=== PATIENT | female | born 1970 | race Caucasian/White ===

== ENCOUNTER 2019-03-07 20:16 | Emergency (ER) | payer BC ==
[2019-03-07 20:31] VITALS: BP 148/80; PULSE 90; TEMP 98.4; BMI 23.3
--- NOTE | 2019-03-07 21:04 | PDOC ---
History of Present Illness - General Chief Complaint: Pain Stated Complaint: ABD PAIN Time Seen by Provider: 03/07/19 21:00 - History of Present Illness Initial Comments: 03/07/19 21:27 49 year old with a history of prior ovarian cyst who presents with R flank pain that has travelled to the RLQ for 1 week, described as cramping and rated 6/10. The patient started having the pain 7 days ago and states that it lasted for 3 days but then resolved but returned today. The patient admits to some nausea but denies v/d/c. She states she has been having urinary frequency today. She denies any hematuria. She has no other complaints. ROS GENERAL/CONSTITUTIONAL: No fever or chills. No weakness. CARDIOVASCULAR: No chest pain or shortness of breath RESPIRATORY: No cough, wheezing, or hemoptysis. GASTROINTESTINAL: + nausea, No vomiting, diarrhea or constipation. GENITOURINARY: No dysuria, frequency, or change in urination. MUSCULOSKELETAL: No joint or muscle swelling or pain. No neck or back pain. SKIN: No rash NEUROLOGIC: No headache, vertigo, loss of consciousness, or change in strength/ sensation. PE GENERAL: Awake, alert, and fully oriented, in no acute distress HEAD: No signs of trauma, normocephalic, atraumatic EYES: EOMI, sclera anicteric, conjunctiva clear ENT: oropharynx clear without exudates. Moist mucosa NECK: Normal ROM, supple LUNGS: No distress, speaks full sentences, clear to auscultation bilaterally HEART: Regular rate and rhythm, normal S1 and S2, no murmurs, rubs or gallops, peripheral pulses normal and equal bilaterally. ABDOMEN: Soft, + slight RLQ tenderness, negative psoas and obturator sign BACK: + R CVA tendneress EXTREMITIES : Normal inspection, Normal range of motion, no edema. No clubbing or cyanosis. NEUROLOGICAL: Cranial nerves II through XII grossly intact. Normal speech, no focal sensorimotor deficits SKIN: Warm, Dry, normal turgor, no rashes or lesions noted PELVIC: closed cervical os, physiologic fluid, no cervical motion tenderness MDM DDX including but not limited to: nephrolithiasis vs appendicitis vs ovarian torsion ED Course: Dominique Pittman, PGY2 Emergency Medicine 03/07/19 22:25 Past History - Past Medical History Allergies/Adverse Reactions: Allergies Allergy/AdvReac Type Severity Reaction Status Date / Time acetaminophen [From Tylenol] Allergy Verified 03/07/19 20:32 COPD: No Other medical history: Ovarian Cyst - Psycho Social/Smoking Cessation Hx Smoking History: Current every day smoker Number of Cigarettes Smoked Daily: 20 Information on smoking cessation initiated: No Hx Alcohol Use: No Drug/Substance Use Hx: No *Physical Exam - Vital Signs Last Vital Signs Temp Pulse Resp BP Pulse Ox 98.4 F 90 19 148/80 99 03/07/19 20:27 03/07/19 20:27 03/07/19 20:27 03/07/19 20:27 03/07/19 20:27 ED Treatment Course - LABORATORY CBC & Chemistry Diagram: 03/07/19 21:33 03/07/19 21:33 Discharge - Follow up/Referral Referrals: Maddie Ruiz MD [Primary Care Provider] - - Patient Discharge Instructions - Post Discharge Activity
--- NOTE | 2019-03-07 21:40 | PDOC ---
Attending Attestation - Resident Resident Name: Dominique Pittman - ED Attending Attestation I have performed the following: I have examined & evaluated the patient, The case was reviewed & discussed with the resident, I agree w/resident's findings & plan - HPI HPI: 03/07/19 23:16 see resident hpi - Physicial Exam PE: 03/07/19 23:16 agree with resident hpi - Medical Decision Making 03/07/19 23:16 49-year-old female with right flank and right lower quadrant pain Urinalysis positive for hematuria, microscopic Plan for CT scan of the abdomen and pelvis without contrast to evaluate for ureterolithiasis Due to right lower quadrant/pelvic pain and ultrasound will be performed as well to rule out ovarian pathology
[2019-03-07 21:41] LABS: BASO % 0.5 % (0-2.0); EOS % 1.2 % (0-4.5); HEMATOCRIT 40.6 % (32.4-45.2); HEMOGLOBIN 14.6 GM/dL (10.7-15.3); LYMPH % 28.9 % (8-40); MCH 34.2 pg (25.7-33.7); MCHC 36.1 g/dl (32.0-36.0); MEAN CELL VOLUME 94.7 fl (80-96); MEAN PLT VOLUME 7.1 fl (7.5-11.1); MONO % 7.2 % (3.8-10.2); NEUT % 62.2 % (42.8-82.8); PLATELET COUNT 367 K/MM3 (134-434); RBC 4.28 M/mm3 (3.60-5.2); RDW 12.7 % (11.6-15.6); WHITE BLOOD COUNT 8.6 K/mm3 (4.0-10.0)
[2019-03-07 21:47] LABS: EPI CELLS 0.7 /HPF (0-5/HPF); HYALINE CASTS 0 /lpf (0-8); URINE APPEARANCE CLEAR; URINE BACTERIA 4.8 /hpf (NEGATIVE); URINE BILIRUBIN NEGATIVE (NEGATIVE); URINE COLOR YELLOW; URINE GLUCOSE (UA) NEGATIVE (NEGATIVE); URINE KETONE NEGATIVE (NEGATIVE); URINE LEUK ESTERASE TRACE (NEGATIVE); URINE NITRITE NEGATIVE (NEGATIVE); URINE PROTEIN NEGATIVE (NEGATIVE); URINE RBC 1 /hpf (0-4); URINE UROBILINOGEN 0.2 mg/dL (0.2-1.0); URINE WBC 7 /hpf (0-5)
[2019-03-07 22:14] LABS: ALBUMIN 4.5 g/dl (3.4-5.0); BILIRUBIN,TOTAL 0.2 mg/dL (0.2-1); BLOOD UREA NITROGEN 12.9 mg/dL (7-18); CALCIUM 9.7 mg/dL (8.5-10.1); CREATININE 0.7 mg/dL (0.55-1.3); POTASSIUM 3.8 mmol/L (3.5-5.1); TOT PROT 7.8 g/dl (6.4-8.2)
[2019-03-08] MEDS ORDERED: SODIUM CHLORIDE 1,000 ML IV STA (00:02)
[2019-03-08] MEDS ORDERED: KETOROLAC TROMETHAMINE 15 MG/ML VIAL IVPUSH ONE (00:02)
--- NOTE | 2019-03-08 00:18 | PDOC ---
*Physical Exam - Vital Signs Last Vital Signs Temp Pulse Resp BP Pulse Ox 98.4 F 90 19 148/80 99 03/07/19 20:27 03/07/19 20:27 03/07/19 20:27 03/07/19 20:27 03/07/19 20:27 ED Treatment Course - LABORATORY CBC & Chemistry Diagram: 03/07/19 21:33 03/07/19 21:33 - ADDITIONAL ORDERS Additional order review: Laboratory Results 03/07/19 03/07/19 03/07/19 21:34 21:34 21:33 Sodium Potassium Chloride Carbon Dioxide Anion Gap BUN Creatinine Est GFR (CKD-EPI)AfAm Est GFR (CKD-EPI)NonAf Random Glucose Calcium Total Bilirubin AST ALT Alkaline Phosphatase Total Protein Albumin Lipase 215 Urine Color Yellow Urine Appearance Clear Urine pH 6.0 Ur Specific [place] 1.006 L Urine Protein Negative Urine Glucose (UA) Negative Urine Ketones Negative Urine Blood 2+ H Urine Nitrite Negative Urine Bilirubin Negative Urine Urobilinogen 0.2 Ur Leukocyte Esterase Trace Urine WBC (Auto) 7 Urine RBC (Auto) 1 Urine Casts (Auto) 0 U Epithel Cells (Auto) 0.7 Urine Bacteria (Auto) 4.8 Urine HCG, Qual Negative 03/07/19 21:33 Sodium 143 Potassium 3.8 Chloride 107 Carbon Dioxide 27 Anion Gap 8 BUN 12.9 Creatinine 0.7 Est GFR (CKD-EPI)AfAm 117.91 Est GFR (CKD-EPI)NonAf 101.74 Random Glucose 94 Calcium 9.7 Total Bilirubin 0.2 AST 20 ALT 27 Alkaline Phosphatase 94 Total Protein 7.8 Albumin 4.5 Lipase Urine Color Urine Appearance Urine pH Ur Specific [place] Urine Protein Urine Glucose (UA) Urine Ketones Urine Blood Urine Nitrite Urine Bilirubin Urine Urobilinogen Ur Leukocyte Esterase Urine WBC (Auto) Urine RBC (Auto) Urine Casts (Auto) U Epithel Cells (Auto) Urine Bacteria (Auto) Urine HCG, Qual 03/07/19 21:33 RBC 4.28 MCV 94.7 MCHC 36.1 H RDW 12.7 MPV 7.1 L Neutrophils % 62.2 Lymphocytes % 28.9 Monocytes % 7.2 Eosinophils % 1.2 Basophils % 0.5 Medical Decision Making - Medical Decision Making 03/08/19 00:[address] Pittman pending CT read. giving IV fluids and Toradol 03/08/19 00:42 8 mm stone proximal right ureter causing minimal caliectasis right kidney. 10.5 x 6.8 x 6.3 cm hypodense structrure in left adnexa, possibly a left ovarian cyst. Normal left ovarian parenchyma again not seen, similar to recent ultrasound. Consulting Urology. Cyst seen, patient states she has had cyst in the ovary before. pending US read. Per urology (Dr. Ivan), does not need admission; pain control and Flomax with uro f/u. 03/08/19 01:17 EDT 6.9 x 5.5 x 5.3 cm left adnexal mass without visible blood flow, question torsed left ovary versus large hemorrhagic cyst obscuring normal left ovarian parenchyma. Bowel gas obscures right ovary. No free fluid. Normal uterus. Endometrial stripe complex 2 mm thick. Unremarkable visualized portion of bladder. consulting OBGYN discussed case with Dr Rebollar, low suspicion for torsion, advised that pt f/u with floor winder in 48h. pt safe for dc home, has certified welder and will provide with uro f/u. rx sent. given return precautions Discharge - Discharge Information Problems reviewed: Yes Clinical Impression/Diagnosis: Ureteral stone, Left ovarian cyst Condition: Good Disposition: HOME - Admission No - Additional Discharge Information Prescriptions: Ibuprofen 600 mg PO TID #21 tablet Tamsulosin HCl 0.4 mg PO DAILY #7 capsule - Follow up/Referral Referrals: Maddie Ruiz MD [Primary Care Provider] - Dwight Ivan MD [Staff Physician] - Donte Mckeon MD [Staff Physician] - Amadou Turner MD [Staff Physician] - Joaquin Iraheta MD [Staff Physician] - - Patient Discharge Instructions Patient Printed Discharge Instructions: DI for Kidney Stones Additional Instructions: You were seen in the emergency room today for pain. You have a stone in the ureter (kidney stone) that is causing your pain. We spoke to the urologist who recommends taking pain medication and another medication called Flomax until you see the urologist. Information is provided below. Please call the office tomorrow to set up an appointment. If they are not open tomorrow, try again on Saturday. Please see your floor winder either on Saturday or Saturday next week regarding the cyst. Come back to the emergency room for worsening pain, if you develop fever, are unable to urinate or if any new or concerning symptom develops. Thank you - Post Discharge Activity
[2019-03-08] MEDS ORDERED: KETOROLAC TROMETHAMINE 15 MG/ML VIAL ONE (00:54)
== END 2019-03-08 01:42 | disposition home or self-care (01) ==
LOC: JER 20:16
PROC: 3E0333Z Introduction of Anti-inflammatory into Peripheral Vein, Percutaneous Approach (ICD-10-PCS; principal; 2019-03-07)
DX: N20.2 Calculus of kidney with calculus of ureter (principal); N83.202 Unspecified ovarian cyst, left side; Z88.6 Allergy status to analgesic agent; F17.210 Nicotine dependence, cigarettes, uncomplicated
CPT/HCPCS: 36415; 74176-TC; 76830-TC; 80053; 81003; 83690; 84703; 85025; 87086; 87186; 99283-25